=== PATIENT | female | born 1950 | race Caucasian/White ===

== ENCOUNTER 2018-06-07 09:46 | Emergency (ER) | payer MEDICARE ==
[~2018-06-07] VITALS: Ht 157.5 cm; Wt 50.6 kg
[2018-06-07 10:54] LABS: BASOPHILS # (AUTO) 0.04 x10^3/uL (0-0.1); BASOPHILS % (AUTO) 1 % (0-1); EOSINOPHILS # (AUTO) 0.05 x10^3/uL (0-0.4); EOSINOPHILS % (AUTO) 1 % (1-7); LYMPHOCYTES # (AUTO) 1.24 x10^3/uL (1-3.4); LYMPHOCYTES % (AUTO) 26 % (22-44); MD NO; MEAN CORPUSCULAR HEMOGLOBIN 29.4 pg (27.0-34.8); MEAN CORPUSCULAR HGB CONC 33.1 g/dL (32.4-35.8); MEAN CORPUSCULAR VOLUME 88.8 fL (80-100); MEAN PLATELET VOLUME 7.4 fL (7.4-10.4); MONOCYTES # (AUTO) 0.38 x10^3/uL (0.2-0.8); MONOCYTES % (AUTO) 8 % (2-9); NEUTROPHILS # (AUTO) 3.13 x10^3/uL (1.8-6.8); NEUTROPHILS % (AUTO) 65 % (42-75); PLATELET COUNT 361 x10^3/uL (130-400); RED BLOOD COUNT 4.61 x10^6/uL (3.82-5.3)
[2018-06-07 10:56] LABS: ALBUMIN 3.7 g/dL (3.4-5.0); ANION GAP 10 mmol/L (5-15); CALCIUM 9.6 mg/dL (8.5-10.1); CHLORIDE 105 mmol/L (98-107); CREATININE 0.93 mg/dL (0.55-1.02)
[2018-06-07 11:44] LABS: MICROSCOPIC AUTO
[2018-06-07 11:46] LABS: CULTURE INDICATED? NO
[2018-06-07 13:08] VITALS: BP 137/101
== END 2018-06-07 13:11 | disposition home or self-care (01) ==
LOC: ED 12:11
DX: R33.9 Retention of urine, unspecified (principal); G43.909 Migraine, unspecified, not intractable, without status migrainosus; R39.15 Urgency of urination; Z90.89 Acquired absence of other organs
CPT/HCPCS: 36415; 51700; 74018; 74176; 80048; 81001; 82040; 85025; 99285

== ENCOUNTER 2018-06-11 09:52 | Emergency (ER) | payer MEDICARE ==
[~2018-06-11] VITALS: Ht 154.9 cm; Wt 50.6 kg
[2018-06-11 11:06] LABS: MICROSCOPIC INDICATED
[2018-06-11 11:20] LABS: CULTURE INDICATED? YES
[2018-06-11 12:04] VITALS: BP 142/77
== END 2018-06-11 11:56 | disposition home or self-care (01) ==
LOC: ED 11:19
DX: R31.9 Hematuria, unspecified (principal)
CPT/HCPCS: 81001; 87077; 87086; 87186; 99285

== ENCOUNTER → 2019-09-10 | Outpatient (CLI) | payer MEDICARE | END | disposition home or self-care (01) | LOC: CFH 10:16 | PROVIDERS: ATTEND Physician Assistant | CPT/HCPCS: 77080 ==

== ENCOUNTER → 2020-08-12 | Outpatient (CLI) | payer MEDICARE | END | disposition home or self-care (01) | LOC: CFH 15:49 | PROVIDERS: ATTEND Internal Medicine Cardiovascular Disease | DX: R00.2 Palpitations (principal); E78.00 Pure hypercholesterolemia, unspecified; Z82.49 Family history of ischemic heart disease and other diseases of the circulatory system | CPT/HCPCS: 93306 ==